=== PATIENT | male | born 1975 | race Two or more races ===

== ENCOUNTER 2016-12-21 | Emergency (ER) | payer SELFPAY ==
[~2016-12-21] VITALS: Ht 170.2 cm; Wt 81.6 kg
[2016-12-21 00:16] VITALS: BP 116/70
[2016-12-21 05:12] VITALS: BP 121/69
--- NOTE | 2016-12-21 07:08 | Emergency Room Report ---
History of Present Illness General Chief Complaint: Substance Abuse Source: Patient, EMS Present Illness HPI Patient a 41-year-old male who presented after increased altered mental status. Patient noted a bus stop. Patient states that he was smoking marijuana earlier today. He denies recent alcohol use. The history is limited by patient 's poor cooperation. The patient was noted to be riding a bike. He denied any recent trauma. Allergies: Coded Allergies: No Known Allergies (Unverified , 12/20/16) Patient History Past Medical History: see triage record Reviewed Nursing Documentation: PMH: Agreed, PSxH: Agreed Nursing Documentation-PMH Past Medical History: No Stated History Review of Systems All Other Systems: negative except mentioned in HPI Physical Exam Vital Signs Date Time Temp Pulse Resp B/P (MAP) Pulse Ox O2 Delivery O2 Flow Rate FiO2 12/20/16 23:52 97.3 90 18 116/70 98 Room Air General Appearance: well appearing, no apparent distress, alert, GCS 15 Head: normocephalic, atraumatic ENT: hearing grossly normal, normal voice Neck: full range of motion, supple Respiratory: no respiratory distress, speaking full sentences Gastrointestinal: normal inspection, non tender Musculoskeletal: normal inspection, no calf tenderness Neurologic: normal inspection, alert, oriented x3, responsive, normal gait Psychiatric: mood/affect normal Skin: no rash Medical Decision Making Diagnostic Impression: Primary Impression: Substance abuse ER Course Patient presented for altered mental status. Differential diagnosis included but was not limited to ischemic stroke, subarachnoid hemorrhage, hypoglycemia, spinal cord injury, neurodegenerative disorder, urinary tract infection, hypoxemia. Patient was observed in the emergency department had gradual improvement in his mental status. At the time of discharge patient was awake alert and oriented. He did not appear to have any need for laboratory testing during his emergency stay.The patient is advised to follow up with primary care doctor. Patient is advised to return if any worsening condition or if any changes in status that are concerning. Last Vital Signs Date Time Temp Pulse Resp B/P (MAP) Pulse Ox O2 Delivery O2 Flow Rate FiO2 12/21/16 05:12 97.3 61 20 121/69 96 Room Air Status: improved Disposition: HOME, SELF-CARE Condition: Stable Referrals: NOT CHOSEN IPA/MD,REFERRING (PCP) Patient Instructions: Cannabis Use Disorder Junior Carnes Dec 21, 2016 07:08
== END 2016-12-21 05:14 | disposition home or self-care (01) ==
LOC: EDBD → EMR 00:12
DX: F12.10 Cannabis abuse, uncomplicated (principal); R41.82 Altered mental status, unspecified
CPT/HCPCS: 99282